=== PATIENT | male | born 1955 | race Hispanic/Latino ===

== ENCOUNTER → 2018-12-12 | Outpatient (REF) ==
[~2018-12-12] MED LIST: CEPHALEXIN500 MG PO; METFORMIN500 MG PO
== END | disposition home or self-care (01) | DRG 639 ==
LOC: LAB 09:01
PROVIDERS: ATTEND Physician Assistant Medical
DX: E11.9 Type 2 diabetes mellitus without complications (principal); E78.2 Mixed hyperlipidemia; Z13.9 Encounter for screening, unspecified; Z12.5 Encounter for screening for malignant neoplasm of prostate

== ENCOUNTER 2020-07-10 12:33 | Emergency (ER) | payer OTHER ==
[~2020-07-10] VITALS: Ht 170.2 cm; Wt 70.0 kg
[2020-07-10] MEDS ORDERED: CEPHALEXIN500 M1 PO (13:41)
[2020-07-10 13:56] VITALS: BP 142/70
== END 2020-07-10 13:56 | disposition home or self-care (01) | DRG 605 ==
LOC: ED 12:33
PROC: 0HQGXZZ Repair Left Hand Skin, External Approach (ICD-10-PCS; principal; 2020-07-10)
DX: S61.012A Laceration without foreign body of left thumb without damage to nail, initial encounter (principal); W45.8XXA Other foreign body or object entering through skin, initial encounter; Y93.89 Activity, other specified; Y99.0 Civilian activity done for income or pay

== ENCOUNTER 2020-10-04 21:01 | Inpatient (IN) | payer OTHER ==
[~2020-10-04] VITALS: Ht 170.2 cm; Wt 74.0 kg
[~2020-10-04 21:01] MED LIST changes: +CEPHALEXIN500 M1 PO
[2020-10-04] MEDS ORDERED: ASPIRIN81 MG PO (21:47)
[2020-10-04] MEDS ORDERED: LOVASTATIN10 M1 PO (21:48)
[2020-10-04] MEDS ORDERED: LISINOPRIL2.5 MG PO (21:48)
[2020-10-04] MEDS ORDERED: PROMETHAZIN1 PO (21:50)
[2020-10-04] MEDS ORDERED: ALBUTEROL SUL0.083 % IN (21:51)
[2020-10-04] MEDS ORDERED: BENZONATATE200 MG PO (21:51)
[2020-10-04] MEDS ORDERED: AZITHROMYCIN PO (21:53)
[2020-10-04 22:26] LABS: HEMATOCRIT 44.8 % (39.0-50.0); HEMOGLOBIN 14.2 g/dl (14.0-18.0); IMMATURE GRANULOCYTES 0.2 % (0.0-5.0); MEAN CELL VOLUME 91.1 fL CALC (80.0-100.0); MEAN CORPUSCULAR HGB 28.9 pG CALC (26.0-32.0); MEAN CORPUSCULAR HGB CONC 31.7 g/dL CAL (32.0-36.0); NEUT# 7.74 thou/uL (1.82-7.42); RED BLOOD COUNT 4.92 mill/uL (4.70-6.10); RED CELL DISTRI WIDTH 12.8 % (11.5-15.5)
[2020-10-04 22:48] LABS: D-DIMER 0.6 mg/L (0.19-0.60)
[2020-10-04 22:49] LABS: ALBUMIN 4.1 g/dL (3.2-5.0); ALKALINE PHOSPHATASE 80 u/l (38-126); BUN 15 mg/dL (8-23); BUN/CREATININE RATIO 20 (12-20 (CALC)); CARBON DIOXIDE 28 mmol/l (22-30); CHLORIDE 99 mmol/l (95-108); CREATININE 0.7 mg/dL (0.7-1.3); GFR > 60 ML/MIN (>=60 (CALC)); GFR FOR AFR.AMER. > 60 ML/MIN (>=60 (CALC)); LIPASE 108 u/l (23-300); SODIUM 135 mmol/l (137-146); TOTAL PROTEIN 7.6 g/dL (6.3-8.2)
[2020-10-04 22:59] LABS: BILIRUBIN, TOTAL 0.7 mg/dL (0.0-1.4); SGOT/AST 44 u/l (19-48)
[2020-10-04 23:00] LABS: C-REACTIVE PROTEIN 14.4 mg/dL (0-0.9)
[2020-10-04 23:01] LABS: ANION GAP 12 (6-22 (CALC)); POTASSIUM 4.3 mmol/l (3.5-5.1)
[2020-10-04 23:05] LABS: ACT PARTIAL THROMBO TIME 33.4 SECONDS (20.0-32.5); INTERNATIONAL NORMALIZED RATIO 1.1 RATIO (0.7-1.3); PROTHROMBIN TIME 11.1 SECONDS (9.0-12.5)
[2020-10-05] VITALS (12 sets, daily range): BP systolic 96–155; BP diastolic 49–87
[2020-10-05 01:22] LABS: URINE BILIRUBIN - DIPSTICK NEGATIVE (NEGATIVE); URINE BLOOD DIPSTICK MODERATE (NEGATIVE); URINE COLOR YELLOW; URINE GLUCOSE - DIPSTICK NEGATIVE (NEGATIVE); URINE KETONE 15 mg/dL (NEGATIVE); URINE LEUK ESTERASE NEGATIVE (NEGATIVE); URINE NITRITE - DIPSTICK NEGATIVE (Negative); URINE PH 6.5 (4.5-8.0); URINE PROTEIN - DIPSTICK NEGATIVE (NEG-TRACE); URINE UROBILINOGEN - DIPSTICK 0.2 E.U./dL (0.2)
[2020-10-05 01:23] LABS: URINE EPITHELIAL CELLS FEW EPI/hpf (0-FEW)
[2020-10-05 01:24] LABS: URINE BACTERIA FEW hpf
[2020-10-05 10:12] LABS: HEMATOCRIT 45.3 % (39.0-50.0); HEMOGLOBIN 14.3 g/dl (14.0-18.0); IMMATURE GRANULOCYTES 0.4 % (0.0-5.0); MEAN CELL VOLUME 91.1 fL CALC (80.0-100.0); MEAN CORPUSCULAR HGB 28.8 pG CALC (26.0-32.0); MEAN CORPUSCULAR HGB CONC 31.6 g/dL CAL (32.0-36.0); NEUT# 4.43 thou/uL (1.82-7.42); RED BLOOD COUNT 4.97 mill/uL (4.70-6.10); RED CELL DISTRI WIDTH 12.7 % (11.5-15.5)
[2020-10-05 10:57] LABS: ALKALINE PHOSPHATASE 73 u/l (38-126); ANION GAP 14 (6-22 (CALC)); BILIRUBIN, TOTAL 0.6 mg/dL (0.0-1.4); BUN 13 mg/dL (8-23); BUN/CREATININE RATIO 19 (12-20 (CALC)); CARBON DIOXIDE 27 mmol/l (22-30); CHLORIDE 101 mmol/l (95-108); CREATININE 0.7 mg/dL (0.7-1.3); GFR > 60 ML/MIN (>=60 (CALC)); GFR FOR AFR.AMER. > 60 ML/MIN (>=60 (CALC)); POTASSIUM 4.7 mmol/l (3.5-5.1); SGOT/AST 44 u/l (19-48); SODIUM 137 mmol/l (137-146); TOTAL PROTEIN 7.5 g/dL (6.3-8.2)
[2020-10-05] MEDS ORDERED: LISINOPRIL10 MG PO (13:59)
[2020-10-06] VITALS (13 sets, daily range): BP systolic 101–143; BP diastolic 59–83
[2020-10-06 04:53] LABS: HEMATOCRIT 42.9 % (39.0-50.0); HEMOGLOBIN 13.8 g/dl (14.0-18.0); IMMATURE GRANULOCYTES 0.3 % (0.0-5.0); MEAN CELL VOLUME 89.6 fL CALC (80.0-100.0); MEAN CORPUSCULAR HGB 28.8 pG CALC (26.0-32.0); MEAN CORPUSCULAR HGB CONC 32.2 g/dL CAL (32.0-36.0); NEUT# 11.61 thou/uL (1.82-7.42); RED BLOOD COUNT 4.79 mill/uL (4.70-6.10); RED CELL DISTRI WIDTH 12.4 % (11.5-15.5)
[2020-10-06 05:21] LABS: ALBUMIN 3.4 g/dL (3.2-5.0); ALKALINE PHOSPHATASE 67 u/l (38-126); ANION GAP 12 (6-22 (CALC)); BILIRUBIN, TOTAL 0.5 mg/dL (0.0-1.4); BUN 18 mg/dL (8-23); BUN/CREATININE RATIO 27 (12-20 (CALC)); C-REACTIVE PROTEIN 5.6 mg/dL (0-0.9); CARBON DIOXIDE 25 mmol/l (22-30); CHLORIDE 105 mmol/l (95-108); CREATININE 0.7 mg/dL (0.7-1.3); GFR > 60 ML/MIN (>=60 (CALC)); GFR FOR AFR.AMER. > 60 ML/MIN (>=60 (CALC)); POTASSIUM 4.5 mmol/l (3.5-5.1); SGOT/AST 39 u/l (19-48); SODIUM 138 mmol/l (137-146); TOTAL PROTEIN 6.2 g/dL (6.3-8.2)
[2020-10-07] VITALS (11 sets, daily range): BP systolic 112–144; BP diastolic 65–81
[2020-10-07 05:55] LABS: HEMOGLOBIN 14.2 g/dl (14.0-18.0); IMMATURE GRANULOCYTES 0.5 % (0.0-5.0); MEAN CELL VOLUME 89.2 fL CALC (80.0-100.0); MEAN CORPUSCULAR HGB 28.8 pG CALC (26.0-32.0); MEAN CORPUSCULAR HGB CONC 32.3 g/dL CAL (32.0-36.0); NEUT# 10.56 thou/uL (1.82-7.42); RED BLOOD COUNT 4.93 mill/uL (4.70-6.10); RED CELL DISTRI WIDTH 12.6 % (11.5-15.5)
[2020-10-07 06:09] LABS: ALBUMIN 3.7 g/dL (3.2-5.0); ALKALINE PHOSPHATASE 68 u/l (38-126); ANION GAP 13 (6-22 (CALC)); BILIRUBIN, TOTAL 0.5 mg/dL (0.0-1.4); BUN 21 mg/dL (8-23); BUN/CREATININE RATIO 26 (12-20 (CALC)); CARBON DIOXIDE 27 mmol/l (22-30); CHLORIDE 104 mmol/l (95-108); CREATININE 0.8 mg/dL (0.7-1.3); GFR > 60 ML/MIN (>=60 (CALC)); GFR FOR AFR.AMER. > 60 ML/MIN (>=60 (CALC)); POTASSIUM 4.2 mmol/l (3.5-5.1); SGOT/AST 33 u/l (19-48); SODIUM 139 mmol/l (137-146); TOTAL PROTEIN 6.6 g/dL (6.3-8.2)
[2020-10-08] VITALS (12 sets, daily range): BP systolic 100–139; BP diastolic 54–80
[2020-10-08 06:09] LABS: HEMATOCRIT 44.1 % (39.0-50.0); HEMOGLOBIN 14.4 g/dl (14.0-18.0); IMMATURE GRANULOCYTES 0.5 % (0.0-5.0); MEAN CELL VOLUME 89.1 fL CALC (80.0-100.0); MEAN CORPUSCULAR HGB 29.1 pG CALC (26.0-32.0); MEAN CORPUSCULAR HGB CONC 32.7 g/dL CAL (32.0-36.0); NEUT# 11.55 thou/uL (1.82-7.42); RED BLOOD COUNT 4.95 mill/uL (4.70-6.10); RED CELL DISTRI WIDTH 12.5 % (11.5-15.5)
[2020-10-08 06:36] LABS: ANION GAP 13 (6-22 (CALC)); BUN 22 mg/dL (8-23); BUN/CREATININE RATIO 27 (12-20 (CALC)); C-REACTIVE PROTEIN 1.5 mg/dL (0-0.9); CARBON DIOXIDE 26 mmol/l (22-30); CHLORIDE 103 mmol/l (95-108); CREATININE 0.8 mg/dL (0.7-1.3); GFR > 60 ML/MIN (>=60 (CALC)); GFR FOR AFR.AMER. > 60 ML/MIN (>=60 (CALC)); POTASSIUM 4.6 mmol/l (3.5-5.1); SODIUM 137 mmol/l (137-146)
[2020-10-09] VITALS (11 sets, daily range): BP systolic 98–141; BP diastolic 65–82
[2020-10-09 05:45] LABS: HEMATOCRIT 46.6 % (39.0-50.0); IMMATURE GRANULOCYTES 0.9 % (0.0-5.0); MEAN CELL VOLUME 88.8 fL CALC (80.0-100.0); MEAN CORPUSCULAR HGB 28.6 pG CALC (26.0-32.0); MEAN CORPUSCULAR HGB CONC 32.2 g/dL CAL (32.0-36.0); NEUT# 11.93 thou/uL (1.82-7.42); RED BLOOD COUNT 5.25 mill/uL (4.70-6.10); RED CELL DISTRI WIDTH 12.4 % (11.5-15.5)
[2020-10-09 05:58] LABS: BUN 22 mg/dL (8-23); BUN/CREATININE RATIO 30 (12-20 (CALC)); CARBON DIOXIDE 26 mmol/l (22-30); CHLORIDE 105 mmol/l (95-108); CREATININE 0.7 mg/dL (0.7-1.3); GFR > 60 ML/MIN (>=60 (CALC)); GFR FOR AFR.AMER. > 60 ML/MIN (>=60 (CALC)); SODIUM 139 mmol/l (137-146)
[2020-10-09 06:01] LABS: ANION GAP 12 (6-22 (CALC)); POTASSIUM 4.4 mmol/l (3.5-5.1)
[2020-10-10] VITALS (12 sets, daily range): BP systolic 95–128; BP diastolic 58–72
[2020-10-11] VITALS (15 sets, daily range): BP systolic 11–140; BP diastolic 61–80
[2020-10-11 06:20] LABS: HEMATOCRIT 51.1 % (39.0-50.0); HEMOGLOBIN 16.4 g/dl (14.0-18.0); IMMATURE GRANULOCYTES 0.8 % (0.0-5.0); MEAN CELL VOLUME 88.3 fL CALC (80.0-100.0); MEAN CORPUSCULAR HGB 28.3 pG CALC (26.0-32.0); MEAN CORPUSCULAR HGB CONC 32.1 g/dL CAL (32.0-36.0); NEUT# 15.66 thou/uL (1.82-7.42); RED BLOOD COUNT 5.79 mill/uL (4.70-6.10); RED CELL DISTRI WIDTH 12.6 % (11.5-15.5)
[2020-10-11 06:49] LABS: ALBUMIN 3.7 g/dL (3.2-5.0); ALKALINE PHOSPHATASE 70 u/l (38-126); ANION GAP 16 (6-22 (CALC)); BILIRUBIN, TOTAL 0.6 mg/dL (0.0-1.4); BUN 22 mg/dL (8-23); BUN/CREATININE RATIO 30 (12-20 (CALC)); C-REACTIVE PROTEIN 5.4 mg/dL (0-0.9); CARBON DIOXIDE 22 mmol/l (22-30); CHLORIDE 103 mmol/l (95-108); CREATININE 0.7 mg/dL (0.7-1.3); GFR > 60 ML/MIN (>=60 (CALC)); GFR FOR AFR.AMER. > 60 ML/MIN (>=60 (CALC)); POTASSIUM 4.9 mmol/l (3.5-5.1); SGOT/AST 24 u/l (19-48); SODIUM 136 mmol/l (137-146); TOTAL PROTEIN 6.8 g/dL (6.3-8.2)
[2020-10-12] VITALS (12 sets, daily range): BP systolic 101–124; BP diastolic 54–74
[2020-10-12 06:26] LABS: ALBUMIN 3.4 g/dL (3.2-5.0); ALKALINE PHOSPHATASE 64 u/l (38-126); ANION GAP 13 (6-22 (CALC)); BILIRUBIN, TOTAL 0.7 mg/dL (0.0-1.4); BUN 22 mg/dL (8-23); BUN/CREATININE RATIO 29 (12-20 (CALC)); CARBON DIOXIDE 24 mmol/l (22-30); CHLORIDE 104 mmol/l (95-108); CREATININE 0.8 mg/dL (0.7-1.3); GFR > 60 ML/MIN (>=60 (CALC)); GFR FOR AFR.AMER. > 60 ML/MIN (>=60 (CALC)); POTASSIUM 4.9 mmol/l (3.5-5.1); SGOT/AST 21 u/l (19-48); SODIUM 135 mmol/l (137-146); TOTAL PROTEIN 6.3 g/dL (6.3-8.2)
[2020-10-13] VITALS (12 sets, daily range): BP systolic 96–130; BP diastolic 54–74
[2020-10-13 05:24] LABS: HEMATOCRIT 46.4 % (39.0-50.0); HEMOGLOBIN 14.9 g/dl (14.0-18.0); IMMATURE GRANULOCYTES 0.9 % (0.0-5.0); MEAN CELL VOLUME 89.4 fL CALC (80.0-100.0); MEAN CORPUSCULAR HGB 28.7 pG CALC (26.0-32.0); MEAN CORPUSCULAR HGB CONC 32.1 g/dL CAL (32.0-36.0); NEUT# 17.72 thou/uL (1.82-7.42); RED BLOOD COUNT 5.19 mill/uL (4.70-6.10); RED CELL DISTRI WIDTH 12.7 % (11.5-15.5)
[2020-10-13 06:21] LABS: ALBUMIN 3.1 g/dL (3.2-5.0); ALKALINE PHOSPHATASE 60 u/l (38-126); ANION GAP 12 (6-22 (CALC)); BILIRUBIN, TOTAL 0.7 mg/dL (0.0-1.4); BUN 26 mg/dL (8-23); BUN/CREATININE RATIO 33 (12-20 (CALC)); C-REACTIVE PROTEIN 7.4 mg/dL (0-0.9); CARBON DIOXIDE 25 mmol/l (22-30); CHLORIDE 102 mmol/l (95-108); CREATININE 0.8 mg/dL (0.7-1.3); GFR > 60 ML/MIN (>=60 (CALC)); GFR FOR AFR.AMER. > 60 ML/MIN (>=60 (CALC)); POTASSIUM 4.8 mmol/l (3.5-5.1); SGOT/AST 24 u/l (19-48); SODIUM 134 mmol/l (137-146); TOTAL PROTEIN 6.2 g/dL (6.3-8.2)
[2020-10-14] VITALS (12 sets, daily range): BP systolic 95–181; BP diastolic 58–104
[2020-10-15] VITALS (12 sets, daily range): BP systolic 98–128; BP diastolic 45–79
[2020-10-15 04:49] LABS: HEMATOCRIT 48.7 % (39.0-50.0); HEMOGLOBIN 15.6 g/dl (14.0-18.0); IMMATURE GRANULOCYTES 0.7 % (0.0-5.0); MEAN CELL VOLUME 89.4 fL CALC (80.0-100.0); MEAN CORPUSCULAR HGB 28.6 pG CALC (26.0-32.0); NEUT# 12.73 thou/uL (1.82-7.42); RED BLOOD COUNT 5.45 mill/uL (4.70-6.10); RED CELL DISTRI WIDTH 12.6 % (11.5-15.5)
[2020-10-15 05:18] LABS: ALKALINE PHOSPHATASE 73 u/l (38-126); ANION GAP 14 (6-22 (CALC)); BILIRUBIN, TOTAL 0.6 mg/dL (0.0-1.4); BUN 24 mg/dL (8-23); BUN/CREATININE RATIO 28 (12-20 (CALC)); C-REACTIVE PROTEIN 5.9 mg/dL (0-0.9); CARBON DIOXIDE 24 mmol/l (22-30); CHLORIDE 102 mmol/l (95-108); CREATININE 0.9 mg/dL (0.7-1.3); GFR > 60 ML/MIN (>=60 (CALC)); GFR FOR AFR.AMER. > 60 ML/MIN (>=60 (CALC)); POTASSIUM 4.8 mmol/l (3.5-5.1); SGOT/AST 22 u/l (19-48); SODIUM 134 mmol/l (137-146)
[2020-10-16] VITALS (12 sets, daily range): BP systolic 95–128; BP diastolic 62–82
[2020-10-17] VITALS (10 sets, daily range): BP systolic 97–114; BP diastolic 63–80
[2020-10-17 05:12] LABS: HEMOGLOBIN 16.2 g/dl (14.0-18.0); IMMATURE GRANULOCYTES 0.5 % (0.0-5.0); MEAN CELL VOLUME 88.7 fL CALC (80.0-100.0); MEAN CORPUSCULAR HGB 28.2 pG CALC (26.0-32.0); MEAN CORPUSCULAR HGB CONC 31.8 g/dL CAL (32.0-36.0); NEUT# 8.58 thou/uL (1.82-7.42); RED BLOOD COUNT 5.75 mill/uL (4.70-6.10); RED CELL DISTRI WIDTH 12.7 % (11.5-15.5)
[2020-10-17 05:37] LABS: ALKALINE PHOSPHATASE 68 u/l (38-126); BUN 24 mg/dL (8-23); BUN/CREATININE RATIO 29 (12-20 (CALC)); C-REACTIVE PROTEIN 6.2 mg/dL (0-0.9); CARBON DIOXIDE 25 mmol/l (22-30); CHLORIDE 103 mmol/l (95-108); CREATININE 0.8 mg/dL (0.7-1.3); GFR > 60 ML/MIN (>=60 (CALC)); GFR FOR AFR.AMER. > 60 ML/MIN (>=60 (CALC)); SGOT/AST 30 u/l (19-48); SODIUM 135 mmol/l (137-146); TOTAL PROTEIN 6.1 g/dL (6.3-8.2)
[2020-10-17 06:48] LABS: ANION GAP 12 (6-22 (CALC)); BILIRUBIN, TOTAL 1.1 mg/dL (0.0-1.4); POTASSIUM 5.3 mmol/l (3.5-5.1)
[2020-10-18] VITALS (11 sets, daily range): BP systolic 103–129; BP diastolic 66–83
[2020-10-18 06:35] LABS: ALBUMIN 2.9 g/dL (3.2-5.0); ALKALINE PHOSPHATASE 72 u/l (38-126); ANION GAP 7 (6-22 (CALC)); BUN 20 mg/dL (8-23); BUN/CREATININE RATIO 24 (12-20 (CALC)); CARBON DIOXIDE 28 mmol/l (22-30); CHLORIDE 102 mmol/l (95-108); CREATININE 0.8 mg/dL (0.7-1.3); GFR > 60 ML/MIN (>=60 (CALC)); GFR FOR AFR.AMER. > 60 ML/MIN (>=60 (CALC)); MAGNESIUM 2.2 mg/dL (1.6-2.3); POTASSIUM 4.4 mmol/l (3.5-5.1); SGOT/AST 30 u/l (19-48); SODIUM 133 mmol/l (137-146); TOTAL PROTEIN 5.9 g/dL (6.3-8.2)
[2020-10-19] VITALS (12 sets, daily range): BP systolic 101–129; BP diastolic 70–88
[2020-10-19 06:09] LABS: HEMATOCRIT 46.2 % (39.0-50.0); HEMOGLOBIN 14.7 g/dl (14.0-18.0); IMMATURE GRANULOCYTES 0.4 % (0.0-5.0); MEAN CELL VOLUME 89.9 fL CALC (80.0-100.0); MEAN CORPUSCULAR HGB 28.6 pG CALC (26.0-32.0); MEAN CORPUSCULAR HGB CONC 31.8 g/dL CAL (32.0-36.0); NEUT# 6.05 thou/uL (1.82-7.42); RED BLOOD COUNT 5.14 mill/uL (4.70-6.10); RED CELL DISTRI WIDTH 12.5 % (11.5-15.5)
[2020-10-19 06:50] LABS: ALBUMIN 2.9 g/dL (3.2-5.0); ALKALINE PHOSPHATASE 70 u/l (38-126); ANION GAP 11 (6-22 (CALC)); BILIRUBIN, TOTAL 1.1 mg/dL (0.0-1.4); BUN 16 mg/dL (8-23); BUN/CREATININE RATIO 17 (12-20 (CALC)); C-REACTIVE PROTEIN 6.8 mg/dL (0-0.9); CARBON DIOXIDE 27 mmol/l (22-30); CHLORIDE 99 mmol/l (95-108); GFR > 60 ML/MIN (>=60 (CALC)); GFR FOR AFR.AMER. > 60 ML/MIN (>=60 (CALC)); POTASSIUM 4.4 mmol/l (3.5-5.1); SGOT/AST 28 u/l (19-48); SODIUM 132 mmol/l (137-146); TOTAL PROTEIN 5.8 g/dL (6.3-8.2)
[2020-10-20] VITALS (14 sets, daily range): BP systolic 99–182; BP diastolic 59–86
[2020-10-21] VITALS (11 sets, daily range): BP systolic 100–128; BP diastolic 74–90
[2020-10-21 05:33] LABS: HEMATOCRIT 50.8 % (39.0-50.0); HEMOGLOBIN 15.9 g/dl (14.0-18.0); IMMATURE GRANULOCYTES 0.3 % (0.0-5.0); MEAN CELL VOLUME 89.6 fL CALC (80.0-100.0); MEAN CORPUSCULAR HGB CONC 31.3 g/dL CAL (32.0-36.0); NEUT# 1.89 thou/uL (1.82-7.42); RED BLOOD COUNT 5.67 mill/uL (4.70-6.10); RED CELL DISTRI WIDTH 12.3 % (11.5-15.5)
[2020-10-21 05:44] LABS: ALBUMIN 3.2 g/dL (3.2-5.0); ALKALINE PHOSPHATASE 76 u/l (38-126); ANION GAP 11 (6-22 (CALC)); BILIRUBIN, TOTAL 0.7 mg/dL (0.0-1.4); BUN 20 mg/dL (8-23); BUN/CREATININE RATIO 24 (12-20 (CALC)); CARBON DIOXIDE 28 mmol/l (22-30); CHLORIDE 101 mmol/l (95-108); CREATININE 0.9 mg/dL (0.7-1.3); GFR > 60 ML/MIN (>=60 (CALC)); GFR FOR AFR.AMER. > 60 ML/MIN (>=60 (CALC)); POTASSIUM 4.3 mmol/l (3.5-5.1); SGOT/AST 36 u/l (19-48); SODIUM 135 mmol/l (137-146); TOTAL PROTEIN 6.6 g/dL (6.3-8.2)
[2020-10-22] VITALS (10 sets, daily range): BP systolic 108–137; BP diastolic 64–89
[2020-10-22 06:45] LABS: HEMATOCRIT 46.8 % (39.0-50.0); HEMOGLOBIN 15.1 g/dl (14.0-18.0); IMMATURE GRANULOCYTES 0.3 % (0.0-5.0); MEAN CELL VOLUME 88.3 fL CALC (80.0-100.0); MEAN CORPUSCULAR HGB 28.5 pG CALC (26.0-32.0); MEAN CORPUSCULAR HGB CONC 32.3 g/dL CAL (32.0-36.0); NEUT# 5.48 thou/uL (1.82-7.42); RED BLOOD COUNT 5.3 mill/uL (4.70-6.10); RED CELL DISTRI WIDTH 12.1 % (11.5-15.5)
[2020-10-22 07:14] LABS: ALBUMIN 3.2 g/dL (3.2-5.0); ALKALINE PHOSPHATASE 70 u/l (38-126); ANION GAP 13 (6-22 (CALC)); BILIRUBIN, TOTAL 0.5 mg/dL (0.0-1.4); BUN 23 mg/dL (8-23); BUN/CREATININE RATIO 30 (12-20 (CALC)); C-REACTIVE PROTEIN 2.2 mg/dL (0-0.9); CARBON DIOXIDE 24 mmol/l (22-30); CHLORIDE 101 mmol/l (95-108); CREATININE 0.8 mg/dL (0.7-1.3); GFR > 60 ML/MIN (>=60 (CALC)); GFR FOR AFR.AMER. > 60 ML/MIN (>=60 (CALC)); POTASSIUM 4.4 mmol/l (3.5-5.1); SGOT/AST 37 u/l (19-48); SODIUM 133 mmol/l (137-146); TOTAL PROTEIN 6.6 g/dL (6.3-8.2)
[2020-10-23] VITALS (11 sets, daily range): BP systolic 101–134; BP diastolic 65–88
[2020-10-24] VITALS (12 sets, daily range): BP systolic 112–173; BP diastolic 69–86
[2020-10-24 06:50] LABS: HEMATOCRIT 42.9 % (39.0-50.0); HEMOGLOBIN 13.7 g/dl (14.0-18.0); IMMATURE GRANULOCYTES 0.4 % (0.0-5.0); MEAN CELL VOLUME 88.1 fL CALC (80.0-100.0); MEAN CORPUSCULAR HGB 28.1 pG CALC (26.0-32.0); MEAN CORPUSCULAR HGB CONC 31.9 g/dL CAL (32.0-36.0); NEUT# 11.13 thou/uL (1.82-7.42); RED BLOOD COUNT 4.87 mill/uL (4.70-6.10); RED CELL DISTRI WIDTH 12.1 % (11.5-15.5)
[2020-10-24 07:11] LABS: ALBUMIN 3.1 g/dL (3.2-5.0); ALKALINE PHOSPHATASE 62 u/l (38-126); ANION GAP 9 (6-22 (CALC)); BILIRUBIN, TOTAL 0.5 mg/dL (0.0-1.4); BUN 24 mg/dL (8-23); BUN/CREATININE RATIO 31 (12-20 (CALC)); C-REACTIVE PROTEIN < 0.5 mg/dL (0-0.9); CARBON DIOXIDE 28 mmol/l (22-30); CHLORIDE 99 mmol/l (95-108); CREATININE 0.8 mg/dL (0.7-1.3); GFR > 60 ML/MIN (>=60 (CALC)); GFR FOR AFR.AMER. > 60 ML/MIN (>=60 (CALC)); POTASSIUM 4.8 mmol/l (3.5-5.1); SGOT/AST 38 u/l (19-48); SODIUM 132 mmol/l (137-146)
[2020-10-25] VITALS (11 sets, daily range): BP systolic 98–158; BP diastolic 60–86
[2020-10-26] VITALS (12 sets, daily range): BP systolic 119–152; BP diastolic 69–87
[2020-10-27] VITALS (14 sets, daily range): BP systolic 95–153; BP diastolic 68–97
[2020-10-27 05:58] LABS: HEMATOCRIT 47.3 % (39.0-50.0); HEMOGLOBIN 15.3 g/dl (14.0-18.0); IMMATURE GRANULOCYTES 0.5 % (0.0-5.0); MEAN CELL VOLUME 89.2 fL CALC (80.0-100.0); MEAN CORPUSCULAR HGB 28.9 pG CALC (26.0-32.0); MEAN CORPUSCULAR HGB CONC 32.3 g/dL CAL (32.0-36.0); NEUT# 10.41 thou/uL (1.82-7.42); RED BLOOD COUNT 5.3 mill/uL (4.70-6.10); RED CELL DISTRI WIDTH 12.3 % (11.5-15.5)
[2020-10-27 06:22] LABS: ALBUMIN 3.4 g/dL (3.2-5.0); ALKALINE PHOSPHATASE 61 u/l (38-126); ANION GAP 10 (6-22 (CALC)); BUN 26 mg/dL (8-23); BUN/CREATININE RATIO 35 (12-20 (CALC)); C-REACTIVE PROTEIN < 0.5 mg/dL (0-0.9); CARBON DIOXIDE 29 mmol/l (22-30); CHLORIDE 98 mmol/l (95-108); CREATININE 0.7 mg/dL (0.7-1.3); GFR > 60 ML/MIN (>=60 (CALC)); GFR FOR AFR.AMER. > 60 ML/MIN (>=60 (CALC)); POTASSIUM 4.6 mmol/l (3.5-5.1); SGOT/AST 25 u/l (19-48); SODIUM 132 mmol/l (137-146); TOTAL PROTEIN 6.2 g/dL (6.3-8.2)
[2020-10-27 06:23] LABS: BILIRUBIN, TOTAL 0.8 mg/dL (0.0-1.4)
[2020-10-28] VITALS (13 sets, daily range): BP systolic 104–148; BP diastolic 49–112
[2020-10-29] VITALS (11 sets, daily range): BP systolic 105–141; BP diastolic 66–96
[2020-10-29 05:51] LABS: ANION GAP 10 (6-22 (CALC)); BUN 26 mg/dL (8-23); BUN/CREATININE RATIO 35 (12-20 (CALC)); CARBON DIOXIDE 28 mmol/l (22-30); CHLORIDE 96 mmol/l (95-108); CREATININE 0.7 mg/dL (0.7-1.3); GFR > 60 ML/MIN (>=60 (CALC)); GFR FOR AFR.AMER. > 60 ML/MIN (>=60 (CALC)); POTASSIUM 4.5 mmol/l (3.5-5.1); SODIUM 129 mmol/l (137-146)
[2020-10-30] VITALS (11 sets, daily range): BP systolic 119–138; BP diastolic 70–89
[2020-10-30 06:53] LABS: ANION GAP 9 (6-22 (CALC)); BUN 19 mg/dL (8-23); BUN/CREATININE RATIO 31 (12-20 (CALC)); CARBON DIOXIDE 27 mmol/l (22-30); CHLORIDE 99 mmol/l (95-108); CREATININE 0.6 mg/dL (0.7-1.3); GFR > 60 ML/MIN (>=60 (CALC)); GFR FOR AFR.AMER. > 60 ML/MIN (>=60 (CALC)); POTASSIUM 4.5 mmol/l (3.5-5.1); SODIUM 130 mmol/l (137-146)
[2020-10-31] VITALS (12 sets, daily range): BP systolic 100–138; BP diastolic 71–95
[2020-11-01] VITALS (11 sets, daily range): BP systolic 100–129; BP diastolic 68–93
[2020-11-01 06:01] LABS: HEMOGLOBIN 16.4 g/dl (14.0-18.0); MEAN CELL VOLUME 89.5 fL CALC (80.0-100.0); MEAN CORPUSCULAR HGB 28.8 pG CALC (26.0-32.0); MEAN CORPUSCULAR HGB CONC 32.2 g/dL CAL (32.0-36.0); RED BLOOD COUNT 5.7 mill/uL (4.70-6.10); RED CELL DISTRI WIDTH 12.8 % (11.5-15.5)
[2020-11-01 06:24] LABS: ALBUMIN 3.3 g/dL (3.2-5.0); ALKALINE PHOSPHATASE 59 u/l (38-126); ANION GAP 9 (6-22 (CALC)); BILIRUBIN, TOTAL 0.7 mg/dL (0.0-1.4); BUN 18 mg/dL (8-23); BUN/CREATININE RATIO 23 (12-20 (CALC)); CARBON DIOXIDE 29 mmol/l (22-30); CHLORIDE 99 mmol/l (95-108); CREATININE 0.8 mg/dL (0.7-1.3); GFR > 60 ML/MIN (>=60 (CALC)); GFR FOR AFR.AMER. > 60 ML/MIN (>=60 (CALC)); SGOT/AST 36 u/l (19-48); SODIUM 133 mmol/l (137-146); TOTAL PROTEIN 5.8 g/dL (6.3-8.2)
[2020-11-02] VITALS (9 sets, daily range): BP systolic 108–143; BP diastolic 81–90
[2020-11-02] MEDS ORDERED: PREDNISONE5 MG PO (08:32)
[2020-11-02] MEDS ORDERED: LOPRESSOR 550 MG/TAB PO (08:32)
[2020-11-02] MEDS ORDERED: ALPRAZOLAM0.25 MG PO (08:32)
[2020-11-02] MEDS ORDERED: PANTOPRAZOLE SO40 M1 PO (08:32)
[2020-11-02] MEDS ORDERED: ELIQUIS2.5 MG PO (08:49)
== END 2020-11-02 15:45 | DRG 177 ==
LOC: ED 21:01 → ED-I 23:03 → ED 23:16 → ICU 23:17
PROVIDERS: Internal Medicine; Nurse Practitioner; Nurse Practitioner Family; ADMIT Internal Medicine; ATTEND Internal Medicine
PROC: XW033E5 Introduction of Remdesivir Anti-infective into Peripheral Vein, Percutaneous Approach, New Technology Group 5 (ICD-10-PCS; principal; 2020-10-05)
PROC: XW0DXF5 Introduction of Other New Technology Therapeutic Substance into Mouth and Pharynx, External Approach, New Technology Group 5 (ICD-10-PCS; 2020-10-11)
PROC: XW033H5 Introduction of Tocilizumab into Peripheral Vein, Percutaneous Approach, New Technology Group 5 (ICD-10-PCS; 2020-10-20)
DX: U07.1 COVID-19 (principal); J12.82 Pneumonia due to coronavirus disease 2019; J80 Acute respiratory distress syndrome; E87.1 Hypo-osmolality and hyponatremia; T81.82XA Emphysema (subcutaneous) resulting from a procedure, initial encounter; I10 Essential (primary) hypertension; E11.9 Type 2 diabetes mellitus without complications; E78.00 Pure hypercholesterolemia, unspecified; R19.7 Diarrhea, unspecified; Y84.8 Other medical procedures as the cause of abnormal reaction of the patient, or of later complication, without mention of misadventure at the time of the procedure
CPT/HCPCS: J1650; Q9967

== ENCOUNTER 2020-12-20 01:10 | Emergency (ER) | payer OTHER ==
[~2020-12-20] VITALS: Ht 170.2 cm; Wt 72.0 kg
[~2020-12-20 01:10] MED LIST changes: +ALBUTEROL SUL0.083 % IN; +ALPRAZOLAM0.25 MG PO; +ASPIRIN81 MG PO; +AZITHROMYCIN PO; +BENZONATATE200 MG PO; +ELIQUIS2.5 MG PO; +LISINOPRIL10 MG PO; +LISINOPRIL2.5 MG PO; +LOPRESSOR 550 MG/TAB PO; +LOVASTATIN10 M1 PO; +PANTOPRAZOLE SO40 M1 PO; +PREDNISONE5 MG PO; +PROMETHAZIN1 PO
[2020-12-20 01:57] LABS: IMMATURE GRANULOCYTES 0.4 % (0.0-5.0); MEAN CELL VOLUME 92.2 fL CALC (80.0-100.0); MEAN CORPUSCULAR HGB 29.1 pG CALC (26.0-32.0); MEAN CORPUSCULAR HGB CONC 31.5 g/dL CAL (32.0-36.0); NEUT# 8.37 thou/uL (1.82-7.42); RED BLOOD COUNT 4.61 mill/uL (4.70-6.10); RED CELL DISTRI WIDTH 13.8 % (11.5-15.5)
[2020-12-20 01:58] LABS: HEMATOCRIT 42.5 % (39.0-50.0); HEMOGLOBIN 13.4 g/dl (14.0-18.0)
[2020-12-20 02:22] LABS: ALKALINE PHOSPHATASE 74 u/l (38-126); ANION GAP 12 (6-22 (CALC)); BILIRUBIN, TOTAL 0.5 mg/dL (0.0-1.4); BUN 7 mg/dL (8-23); BUN/CREATININE RATIO 10 (12-20 (CALC)); CARBON DIOXIDE 32 mmol/l (22-30); CHLORIDE 95 mmol/l (95-108); CREATININE 0.7 mg/dL (0.7-1.3); GFR > 60 ML/MIN (>=60 (CALC)); GFR FOR AFR.AMER. > 60 ML/MIN (>=60 (CALC)); SGOT/AST 28 u/l (19-48); SODIUM 135 mmol/l (137-146)
[2020-12-20 02:23] LABS: ALBUMIN 4.3 g/dL (3.2-5.0); TOTAL PROTEIN 7.5 g/dL (6.3-8.2)
[2020-12-20 02:34] LABS: MYOGLOBIN 27 ng/mL (0 - 121)
[2020-12-20] MEDS ORDERED: MEDDOSEPAK PO (03:58)
[2020-12-20] MEDS ORDERED: ZPAK PO (03:58)
[2020-12-20] MEDS ORDERED: ROBITUSSIN AC10 ML PO (03:58)
[2020-12-20 04:03] VITALS: BP 136/77
== END 2020-12-20 04:23 | disposition home or self-care (01) | DRG 195 ==
LOC: ED 01:10
PROVIDERS: Emergency Medicine
DX: J18.9 Pneumonia, unspecified organism (principal); E11.9 Type 2 diabetes mellitus without complications; I10 Essential (primary) hypertension; E78.00 Pure hypercholesterolemia, unspecified; Z79.84 Long term (current) use of oral hypoglycemic drugs; Z86.16 Personal history of COVID-19; Z20.822 Contact with and (suspected) exposure to COVID-19

== ENCOUNTER 2022-09-10 08:38 | Day surgery (SDC) | payer MEDICARE ==
[~2022-09-10] VITALS: Ht 162.6 cm; Wt 68.5 kg
[~2022-09-10 08:38] MED LIST changes: +ASPIRIN LOW81 M1 PO; +ATIVAN0.5 MG PO; +BROVANA15 MCG/2 M; +IPRATROPIU0.5 MG/3 M IN; +LOSARTAN POTASS25 MG PO; +MEDDOSEPAK PO; +MUPIROCIN2 % EX; +NAPROXEN375 MG PO; +PAROXETINE20 MG PO; +PROAIR DIG108 MCG/AC; +ROBITUSSIN AC10 ML PO; +SPIRIVA HANDIH18 MCG; +SYMBICORT1 AE1 IN; +TEMAZEPAM15 MG PO; +TIZANIDINE4 MG PO; +VITAMIN B-12500 MCG PO; +VITAMIN D325 MCG; +ZPAK PO
[2022-09-10 11:33] VITALS: BP 131/82
== END 2022-09-10 11:40 | disposition home or self-care (01) ==
LOC: ENDO 08:38
PROVIDERS: ATTEND Surgery
PROC: 0DJD8ZZ Inspection of Lower Intestinal Tract, Via Natural or Artificial Opening Endoscopic (ICD-10-PCS; principal; 2022-09-10)
DX: Z12.11 Encounter for screening for malignant neoplasm of colon (principal); I10 Essential (primary) hypertension; E11.9 Type 2 diabetes mellitus without complications; Z86.16 Personal history of COVID-19; Z99.81 Dependence on supplemental oxygen; Z79.84 Long term (current) use of oral hypoglycemic drugs

== ENCOUNTER 2023-11-10 19:51 | Inpatient (IN) | payer MEDICARE ==
[2023-11-10] VITALS (8 sets, daily range): BP systolic 124–146; BP diastolic 74–96
[~2023-11-10] VITALS: Ht 165.1 cm; Wt 69.5 kg
[~2023-11-10 19:51] MED LIST changes: +GABAPENTIN100 MG PO; -VITAMIN D325 MCG; +VITAMIN D325 MCG PO
--- NOTE | 2023-11-10 21:50 | NUR ---
PATIENT TO ROOM 13 FOR BEDSIDE TRIAGE. PATIENT UNDRESSED INTO A GOWN, PLACED ON MONITOR. PATIENT ARRIVES ON 2L VIA NC ON HOME O2. SWITCHED TO 2L ON WALL O2. PATIENT TACHYPNEIC BUT RECOVERS WITHIN A FEW MINUTES. O2 SAT ON 2L IS 92-94%. PATIENT STATES HE HAS BEEN HAVING LUNG ISSUES SINCE HE HAD COVID SEVERAL YEARS AGO. STATES ON FRIDAY HE BEGAN TO FEEL MORE SOB, A PRODUCTIVE COUGH AND FELT THE NEED TO INCREASE HOME O2 AT TIMES TO 4L. PATIENT DENIES FEVER AT HOME BUT FEELS FLUSHED.
[2023-11-10] MEDS ORDERED: AZITHROMYCIN 500 MG in SODIUM CHLORIDE 0.9% 250 ML IV ONE (22:20)
[2023-11-10] MEDS ORDERED: methylPREDNISolone SODIUM SUCC 125 MG/2 ML SDV IV ONE (22:20)
[2023-11-10] MEDS ORDERED: cefTRIAXone SODIUM 2 GM in SODIUM CHLORIDE 0.9% 100 ML IV ONE (22:20)
[2023-11-10] MEDS ORDERED: IPRATROPIUM-Albuterol 0.5MG-2.5MG/3 ML NEB ONE ×3 (22:20)
--- NOTE | 2023-11-10 22:34 | NUR ---
IV ESTABLISHED, LABS DRAWN AND SENT. PATIENT PROVIDED BLANKET. URINE SAMPLE COLLECTED. PATIENT AWARE OF PENDING RESULTS AND PLAN OF CARE.
[2023-11-10 22:47] LABS: URINE BILIRUBIN - DIPSTICK Negative (NEGATIVE); URINE BLOOD DIPSTICK Small (NEGATIVE); URINE GLUCOSE - DIPSTICK 500 mg/dL (NEGATIVE); URINE KETONE Negative (NEGATIVE); URINE LEUK ESTERASE Negative (NEGATIVE); URINE NITRITE - DIPSTICK Negative (Negative); URINE PH 6.5 (4.5-8.0); URINE PROTEIN - DIPSTICK Negative (NEG-TRACE); URINE UROBILINOGEN - DIPSTICK 0.2 E.U./dL (0.2)
[2023-11-10 22:52] LABS: BASO% 0.2 % (0-3); EOS% 0.5 % (0-8); HEMATOCRIT 40.6 % (39.0-50.0); HEMOGLOBIN 12.7 g/dl (14.0-18.0); IMMATURE GRANULOCYTES 0.2 % (0.0-5.0); LYMPH% 11.3 % (15-41); MEAN CELL VOLUME 91.6 fL CALC (80.0-100.0); MEAN CORPUSCULAR HGB 28.7 pG CALC (26.0-32.0); MEAN CORPUSCULAR HGB CONC 31.3 g/dL CAL (32.0-36.0); MONO% 9.4 % (2-13); NEUT# 12.16 thou/uL (1.82-7.42); NEUT% 78.4 % (42-76); RED BLOOD COUNT 4.43 mill/uL (4.70-6.10)
[2023-11-10 22:53] LABS: URINE COLOR Yellow
[2023-11-10 22:58] LABS: URINE RBC 0-2 RBC/hpf (0-5)
[2023-11-10 23:04] LABS: D-DIMER 0.86 mg/L (0.19-0.60)
[2023-11-10 23:07] LABS: ALBUMIN 4.2 g/dL (3.2-5.0); ALKALINE PHOSPHATASE 94 u/l (38-126); ANION GAP 10 (6-22 (CALC)); BILIRUBIN, TOTAL 0.6 mg/dL (0.2-1.3); BUN 12 mg/dL (8-23); BUN/CREATININE RATIO 17 (12-20 (CALC)); CARBON DIOXIDE 32 mmol/l (22-30); CHLORIDE 97 mmol/l (95-108); CREATININE 0.7 mg/dL (0.7-1.3); GFR FOR AFR.AMER. > 60 ML/MIN (>=60 (CALC)); GFR OTHER RACES > 60 ML/MIN (>=60 (CALC)); POTASSIUM 4.4 mmol/l (3.5-5.1); SGOT/AST 40 u/l (19-48); SODIUM 135 mmol/l (137-146); TOTAL PROTEIN 7.6 g/dL (6.3-8.2)
[2023-11-10 23:10] LABS: INTERNATIONAL NORMALIZED RATIO 1.2 RATIO (0.7-1.3); PROTHROMBIN TIME 11.3 SECONDS (9.0-12.5)
[2023-11-10] MEDS ORDERED: OMEPRAZOLE DR40 MG PO (23:39)
[2023-11-11] VITALS (55 sets, daily range): BP systolic 111–150; BP diastolic 69–90
[2023-11-11] MEDS ORDERED: SODIUM CHLORIDE 0.9% 1,000 ML IV PRN (01:30)
[2023-11-11] MEDS ORDERED: MAGNESIUM HYDROXIDE 30 ML UDC PO PRN (01:35)
[2023-11-11] MEDS ORDERED: ACETAMINOPHEN 325 MG/TAB PO PRN (01:35)
[2023-11-11] MEDS ORDERED: LORazepam 0.5 MG/TAB PO PRN (05:15)
[2023-11-11] MEDS ORDERED: DEXTROSE 250 ML IV PRN (05:15)
[2023-11-11] MEDS ORDERED: INSULIN LISPRO 100 UNITS/ML ML SC SCH (07:00)
[2023-11-11] MEDS ORDERED: IPRATROPIUM-Albuterol 0.5MG-2.5MG/3 ML NEB SCH (07:00)
--- NOTE | 2023-11-11 08:00 | NUR ---
BEDSIDE REPORT RECIEVED FROM NIGHT RN WHILE PT IN ED. PT CAME TO ED YESTERDAY WITH PRIMARY C/O INCREASED SOB AND PRODUCTIVE COUGH. PT REPORTS THAT HE IS O2 DEPENDENT AT HOME, USUALLY 2L NC BUT HAS HAD TO INCREASE TO 4L. PT WAS PLACED ON BIPAP OVERNIGHT. PT IS A/O. RT SWITCHED PT FROM BIPAP TO 2LNC PRIOR TO COMING TO ICU. PT TOLERATING WELL, O2SAT 97%. PT DOES BECOME SOB WITH EXERTION OF WALKING FROM WHEELCHAIR TO BED BUT RECOVERS QUICKLY. PT'S SPOUSE AT BEDSIDE. LUNG SOUNDS CLEAR UPPER, CRACKLES MIDDLE/LOWER LO BES BILATERALLY. NO COUGH NOTED AT THIS TIME. HEART SOUNDS S1S2; PT IS NSR ON MONITOR. EKG SHOWS RIGHT BUNDLE BRANCH BLOCK. BOWEL SOUNDS ACTIVE. ABDOMEN SOFT/NON-TENDER. PT VOIDS WITH URINAL AT BEDSIDE. PULSES STRONG ALL EXTREMETIES. SKIN W/D/I. AFEBRILE. IV ACCESS 20G LAC; NS INFUSING PER ORDERS ON NOV. PT DENIES ANY PAIN. CALL LIGHT AND BELONGINGS WITHIN REACH. VSS. PT GIVEN BREAKFAST TRAY AND SITTING UP IN BED EATING.
[2023-11-11] MEDS ORDERED: LOSARTAN Potassium 25 MG/TAB PO SCH (09:00)
[2023-11-11] MEDS ORDERED: PARoxetine 10 MG/TAB PO SCH (09:00)
[2023-11-11 09:41] LABS: BASO% 0.1 % (0-3); HEMATOCRIT 41.9 % (39.0-50.0); HEMOGLOBIN 13.1 g/dl (14.0-18.0); IMMATURE GRANULOCYTES 0.1 % (0.0-5.0); LYMPH% 7.7 % (15-41); MEAN CELL VOLUME 91.5 fL CALC (80.0-100.0); MEAN CORPUSCULAR HGB 28.6 pG CALC (26.0-32.0); MEAN CORPUSCULAR HGB CONC 31.3 g/dL CAL (32.0-36.0); MONO% 0.7 % (2-13); NEUT# 12.38 thou/uL (1.82-7.42); NEUT% 91.4 % (42-76); RED BLOOD COUNT 4.58 mill/uL (4.70-6.10); RED CELL DISTRI WIDTH 13.8 % (11.5-15.5)
--- NOTE | 2023-11-11 09:50 | NUR ---
DR. GARCIA AT BEDSIDE TO ASSESS PT. PT AMBULATED TO RESTROOM INDEPENDENTLY BUT BECAME SOB WHEN WALKING. PT RESTING IN BED AT THIS TIME.
[2023-11-11 10:07] LABS: ANION GAP 14 (6-22 (CALC)); BUN 14 mg/dL (8-23); BUN/CREATININE RATIO 22 (12-20 (CALC)); CARBON DIOXIDE 29 mmol/l (22-30); CHLORIDE 99 mmol/l (95-108); CREATININE 0.6 mg/dL (0.7-1.3); GFR FOR AFR.AMER. > 60 ML/MIN (>=60 (CALC)); GFR OTHER RACES > 60 ML/MIN (>=60 (CALC)); POTASSIUM 4.5 mmol/l (3.5-5.1); SODIUM 137 mmol/l (137-146)
[2023-11-11] MEDS ORDERED: predniSONE 20 MG/TAB PO SCH (11:30)
--- NOTE | 2023-11-11 12:00 | NUR ---
PT SITTING UP IN BED TO EAT LUNCH. SPOUSE AT BEDSIDE. NO CHANGES TO PT STATUS. CALL LIGHT AND BELONGINGS WITHIN REACH. VSS.
--- NOTE | 2023-11-11 14:00 | NUR ---
PT SITTING IN BED WATCHING TV. NO CHANGES TO PT STATUS. VSS. CALL LIGHT IN REACH.
--- NOTE | 2023-11-11 16:00 | NUR ---
PT SITTING IN BED WATCHING TV. NO OTHER CHANGES. DOING WELL ON 3LNC. CALL LIGHT AND BELONGINGS WITHIN REACH, VSS.
--- NOTE | 2023-11-11 17:48 | NUR ---
PT SITTING UP IN BED TO EAT DINNER. VSS.
--- NOTE | 2023-11-11 20:04 | NUR ---
BEDSIDE REPORT RECEIVED FROM OFF GOING NURSE. PATIENT AWAKE IN BED WITH SPOUSE AT BEDSIDE. DENIES PAIN OR DISCOMFORT. SHOWS NO SIGNS OF DISTRESS. SAFTEY MEASURES INPLACE. CALL LIGHT WITHIN REACH.
[2023-11-11] MEDS ORDERED: ATORVASTATIN CALCIUM 40 MG/TAB PO SCH (21:00)
[2023-11-11] MEDS ORDERED: GABAPENTIN 100 MG/CAP PO SCH (21:00)
[2023-11-11] MEDS ORDERED: ENOXAPARIN SODIUM 40 MG/0.4 ML SYR SC SCH (21:00)
[2023-11-11] MEDS ORDERED: AZITHROMYCIN 500 MG in SODIUM CHLORIDE 0.9% 250 ML IV SCH (22:00)
--- NOTE | 2023-11-11 22:12 | NUR ---
PATIENT AWAKE IN BED RECEIVING NEBULIZER TREATMENT. DENIES PAIN OR DISCOMFORT. RESPIRATIONS EVEN AND UNLABORED AT REST. SOB NOTED ON EXERTION. CONTINUES ON IV FLUIDS. NO CONCERNS VOICED AT THIS TIME.
[2023-11-11] MEDS ORDERED: GUAIFENESIN 600 MG/TAB PO SCH (22:37)
--- NOTE | 2023-11-12 00:02 | NUR ---
NEW ORDER RECEIVED FOR MUCINEX. MEDICATION ADMINISTERED WITH EFFECTIVE RESULTS. IV FLUIDS CONTINUE. NO SIGNS OF DISTRESS NOTED. SAFETY MEASURES IN PLACE. CALL LIGHT WITHIN REACH.
--- NOTE | 2023-11-12 02:01 | NUR ---
PATIENT ALSEEP IN BED. REPIRATIONS EVEN AND UNLABORED ON ROOM AIR. NO SIGNS OF DISTRESS NOTED. IV FLUIDS CONTINUE. CALL LIGHT WITHIN REACH.
[2023-11-12 04:00] VITALS: BP 124/77
--- NOTE | 2023-11-12 04:11 | NUR ---
PATIENT ASLEEP IN BED BUT EASILY AROUSED. REPSIRATIONS EVEN AND UNLABORED ON OXYGEN AT 3 LPM VIA NC. SAFETY MEASURES IN PLACE. CALL LIGHT WITHIN REACH.
[2023-11-12 07:17] LABS: BASO% 0.1 % (0-3); EOS% 0.1 % (0-8); HEMATOCRIT 38.1 % (39.0-50.0); HEMOGLOBIN 11.7 g/dl (14.0-18.0); IMMATURE GRANULOCYTES 0.3 % (0.0-5.0); LYMPH% 12.5 % (15-41); MEAN CELL VOLUME 92.5 fL CALC (80.0-100.0); MEAN CORPUSCULAR HGB 28.4 pG CALC (26.0-32.0); MEAN CORPUSCULAR HGB CONC 30.7 g/dL CAL (32.0-36.0); MONO% 7.2 % (2-13); NEUT# 12.68 thou/uL (1.82-7.42); NEUT% 79.8 % (42-76); RED BLOOD COUNT 4.12 mill/uL (4.70-6.10); RED CELL DISTRI WIDTH 13.7 % (11.5-15.5)
[2023-11-12 08:00] LABS: ALBUMIN 3.4 g/dL (3.2-5.0); ALKALINE PHOSPHATASE 78 u/l (38-126); ANION GAP 9 (6-22 (CALC)); BILIRUBIN, TOTAL 0.4 mg/dL (0.2-1.3); BUN 16 mg/dL (8-23); BUN/CREATININE RATIO 25 (12-20 (CALC)); CARBON DIOXIDE 29 mmol/l (22-30); CHLORIDE 104 mmol/l (95-108); CREATININE 0.6 mg/dL (0.7-1.3); GFR FOR AFR.AMER. > 60 ML/MIN (>=60 (CALC)); GFR OTHER RACES > 60 ML/MIN (>=60 (CALC)); POTASSIUM 4.2 mmol/l (3.5-5.1); SGOT/AST 35 u/l (19-48); SODIUM 138 mmol/l (137-146); TOTAL PROTEIN 6.2 g/dL (6.3-8.2)
--- NOTE | 2023-11-12 08:00 | NUR ---
REPORT RECIEVED FROM NIGHT RN. NO CHANGES TO PT STATUS OVERNIGHT. PT REMAINS ON 3LNC. PRODUCTIVE COUGH. PT DENIES ANY PAIN OR WORSENING SYMPTOMS. LUNGS COARSE. HEART SOUNDS S1S2; NSR WITH RBBB ON MONITOR. BOWEL SOUNDS ACTIVE. VOIDING WITHOUT DIFFICULTY. PULSES STRONG. SKIN W/D/I. NO EDEMA. CALL LIGHT AND BELONGINGS WITHIN REACH. VSS.
[2023-11-12 08:28] VITALS: BP 134/70
--- NOTE | 2023-11-12 09:38 | NUR ---
PT ASSISTED TO WALKT O RESTROOM. PT AMBULATES WITHOUT DIFFICULTY. PT'S OXYGEN SAT DOES DROP TO ABOUT 89% WHEN AMBULATING WITHOUT O2. PT BACK IN BED AND NASAL CANNULA REAPPLIED. O2 SAT BACK UP TO 98% WITHIN ABOUT 1 MINUTE ON 3L NC. PT BECOMES TACHYPNEIC WITH EXERTION AND REQUIRES TIME TO RECOVER TO NORMAL RR. VSS. DENIES ANY NEEDS.
[2023-11-12] MEDS ORDERED: Levofloxacin 750 mg Premix 150 ML IV SCH (10:00)
[2023-11-12] MEDS ORDERED: LEVAQUIN750 M1 PO (10:58)
--- NOTE | 2023-11-12 12:00 | NUR ---
PT SITTING UP IN BED TO EAT LUNCH. AWARE OF DISCHARGE PLANNED FOR TODAY.
--- NOTE | 2023-11-12 13:00 | NUR ---
PT'S SPOUSE AT BEDSIDE. DISCHARGE TEACHING COMPLETED ,ALL QUESTIONS ANSWERED. PT AWARE OF NEW MEDICATION AND HOW TO TAKE. IV REMOVED. PT DRESSED AND ALL BELONGINGS GATHERED. PT IN GOOD CONDITION. PT'S SPOUSE BROUGHT PT'S HOME O2 FOR RIDE HOME. PT TAKEN DOWNSTAIRS BY WHEELCHAIR.
--- NOTE | 2023-11-13 15:07 | NUR ---
Pt growing ESBL E coli in sputum culture. Pt discharged with levofloxacin, which is resistant. Received verbal order for Invanz 1 g IV daily x [address] Tamayo. Order provided to IV Therapy department. Spoke with pt's who understands change in therapy.
== END 2023-11-12 13:00 | disposition home or self-care (01) | DRG 193 ==
LOC: ED 19:51 → ICU 11-11 01:32 → ED-I 11-11 01:32 → ICU 11-11 07:42
PROVIDERS: Emergency Medicine; Student in an Organized Health Care Education/Training Program; ADMIT Internal Medicine; ATTEND Internal Medicine
PROC: 5A09357 Assistance with Respiratory Ventilation, Less than 24 Consecutive Hours, Continuous Positive Airway Pressure (ICD-10-PCS; principal; 2023-11-10)
DX: J18.9 Pneumonia, unspecified organism (principal); J96.21 Acute and chronic respiratory failure with hypoxia; J44.0 Chronic obstructive pulmonary disease with (acute) lower respiratory infection; J43.8 Other emphysema; U09.9 Post COVID-19 condition, unspecified; E11.65 Type 2 diabetes mellitus with hyperglycemia; I10 Essential (primary) hypertension; E78.5 Hyperlipidemia, unspecified; F41.9 Anxiety disorder, unspecified; F32.A Depression, unspecified; Z99.81 Dependence on supplemental oxygen; Z96.89 Presence of other specified functional implants; Z79.84 Long term (current) use of oral hypoglycemic drugs; Z20.822 Contact with and (suspected) exposure to COVID-19
CPT/HCPCS: J1650; Q9967